=== PATIENT | male | born 1960 | race Caucasian/White ===

== ENCOUNTER 2018-11-28 09:28 | Emergency (ER) | payer BC, OTHER, SELFPAY | END 2018-11-28 09:47 | disposition home or self-care (01) | LOC: SCSER 09:28 | DX: B02.9 Zoster without complications (principal); E78.5 Hyperlipidemia, unspecified; E78.00 Pure hypercholesterolemia, unspecified; I10 Essential (primary) hypertension | CPT/HCPCS: 99282 ==